=== PATIENT | male | born 1945 | race Caucasian/White ===

== ENCOUNTER → 2025-04-29 08:26 | Outpatient (REF) | payer MEDICARE, OTHER, SELFPAY | LOC: RAD 08:26 | PROVIDERS: ATTENDING PHYSICIAN Internal Medicine Cardiovascular Disease; FAMILY PHYSICIAN Family Medicine | DX: N40.0 Benign prostatic hyperplasia without lower urinary tract symptoms (principal) | CPT/HCPCS: 76857 ==